=== PATIENT | male | born 1950 | race Caucasian/White ===

== ENCOUNTER → 2019-06-11 | Outpatient (CLI) | payer OTHER, MEDICARE ==
[~2019-06-11] MED LIST: ASP81TEC PO; CATHETER FLUSH 10 ML SYR IV PRN; CLOP75TA PO; IRON1CAP25 PO; KETO75CA PO; LISI2.5T PO; METO-333 PO; METO50TA7 PO; MTP50T PO; OMEP40CA36 PO; SCR1T1 PO; SERT50TA9 PO; SIMV20TA3 PO; TAMS0.4C2 PO; TMSL.4C PO
--- NOTE | 2019-06-11 12:41 | Diagnostic Imaging Report ---
PROCEDURE: CT abdomen and pelvis without contrast. TECHNIQUE: Multiple contiguous axial images were obtained through the abdomen and pelvis without the use of intravenous contrast. Auto Exposure Controls were utilized during the CT exam to meet ALARA standards for radiation dose reduction. INDICATION: Prostate cancer. Correlation is made with prior CT from 05/04/2014. FINDINGS: The lung bases are clear. No discrete liver mass is identified. The gallbladder is unremarkable. No biliary ductal dilatation is seen. Pancreas and spleen are unremarkable. No adrenal mass is seen. No renal calculi or hydronephrosis is identified. Aorta is calcified but not aneurysmal. No central retroperitoneal lymphadenopathy is seen. There are prominent lymph nodes in the periportal and portacaval region which appear to have been present on prior CT dating back to 2013. Portacaval node measures approximately 23 mm x 12 mm compared with 25 mm x 13 mm on prior. This is indeterminate. Small and large bowel loops are normal caliber. There is no obstruction. There is no ascites. Bladder is unremarkable. There appears to be some impression upon the bladder base by an enlarged prostate. No definite pelvic lymphadenopathy is seen. Evaluation of bony structures does demonstrate a sclerotic focus in the right iliac bone near the crest measuring approximately 7-8 mm. This was barely visible on prior exam measuring approximately 1 mm on prior study from . No other osteosclerotic lesions are seen. There is multilevel degenerative change in lumbar spine. IMPRESSION: 1. Periportal lymphadenopathy, similar to CT dating back to May 2014 and indeterminate. No central retroperitoneal lymphadenopathy is seen. 2. Prostatomegaly. 3. Sclerotic focus right iliac bone, increased in size since exam from 2013. Osteoblastic metastasis cannot be entirely excluded. No other abnormalities are seen. Dictated by: Dictated on workstation # [id number]
--- NOTE | 2019-06-11 16:28 | Diagnostic Imaging Report ---
INDICATION: Prostate carcinoma. TECHNIQUE: Patient was administered 20.9 mCi technetium 99m MDP intravenously and whole body imaging was performed after three-hour delay. COMPARISON: No prior studies are available for comparison. FINDINGS: There is normal uptake of activity by the axial and appendicular skeleton. There is uptake by both kidneys with excretion into the urinary bladder. There is uptake in the region of the great toes bilaterally, likely on degenerative basis. Mild uptake in the cervical spine is seen which is likely degenerative. No suspicious foci of tracer accumulation are seen to suggest osseous metastatic disease. IMPRESSION: No scintigraphic evidence of osseous metastatic disease. Dictated by: Dictated on workstation # [id number]
== END ==
LOC: CARD 11:46
PROVIDERS: ATTEND Urology
DX: C61 Malignant neoplasm of prostate (principal); R59.0 Localized enlarged lymph nodes; M89.9 Disorder of bone, unspecified
CPT/HCPCS: 74176; 78306

== ENCOUNTER 2020-02-11 14:07 | Outpatient (RCR) | payer MEDICARE, OTHER ==
[~2020-02-11 14:07] MED LIST changes: -CATHETER FLUSH 10 ML SYR IV PRN
[2020-02-11 16:14] LABS: BUN/CREATININE RATIO 19; CARBON DIOXIDE 21 MMOL/L (21-32); CHLORIDE 105 MMOL/L (98-107); CREATININE SERUM 0.88 MG/DL (0.60-1.30); GFR ESTIMATED > 60; GLUCOSE 103 MG/DL (70-105); POTASSIUM 4.4 MMOL/L (3.6-5.0); SODIUM 138 MMOL/L (135-145)
== END 2020-05-11 | disposition home or self-care (01) ==
LOC: ONC 14:07
PROVIDERS: ATTEND Radiology Radiation Oncology
DX: C61 Malignant neoplasm of prostate (principal); I25.10 Atherosclerotic heart disease of native coronary artery without angina pectoris; I10 Essential (primary) hypertension; M19.91 Primary osteoarthritis, unspecified site; M54.9 Dorsalgia, unspecified; G89.29 Other chronic pain; I25.2 Old myocardial infarction; N52.9 Male erectile dysfunction, unspecified; F17.210 Nicotine dependence, cigarettes, uncomplicated; Z80.3 Family history of malignant neoplasm of breast; Z95.5 Presence of coronary angioplasty implant and graft; Z79.899 Other long term (current) drug therapy
CPT/HCPCS: 80048; 84153; G0463; 99204

== ENCOUNTER → 2020-08-24 | Outpatient (CLI) | payer MEDICARE | LOC: PREOP 05:43 | PROVIDERS: ATTEND Urology | DX: Z01.818 Encounter for other preprocedural examination (principal) ==

== ENCOUNTER → 2020-08-29 | Day surgery (SDC) | payer MEDICARE ==
[2020-08-29] VITALS (10 sets, daily range): BP systolic 142–164; BP diastolic 73–93
[~2020-08-29] VITALS: Ht 173 cm; Wt 80.5 kg
[~2020-08-29] MED LIST changes: +CIPR500T4 PO; +LIDOCAINE PF 2% 5 ML (XYLOCAINE) VIAL ONE; +MEPERIDINE (DEMEROL) INJ 50 MG/ML IVP ONE; +MIDAZOLAM 2 MG/2 ML (VERSED) VIAL ONE; +ONDANSETRON 4 MG/2 ML (SDV) Z0FRAN IVP PRN; +ONDANSETRON 4 MG/2 ML (SDV) Z0FRAN ONE; +SEVOFLURANE (ULTANE) 15 ML INHAL SOLN ONE; +WATER (STERILE) FOR INJECTION 10 ML ONE; +cefTRIAXone 1,000 MG IV (ROCEPHIN) VIAL ONE; +fentaNYL INJECTION 100 MCG/2 ML AMP ONE; +morphine INJ 10 MG/ML 1ML (SYR OR VIAL) IVP ONE; +proPOfol 200 MG/20 ML (DIPRIVAN) VIAL IV ONE
--- NOTE | 2020-08-29 09:01 | Progress Note-Pre Operative ---
Pre-Operative Progress Note H&P Reviewed The H&P was reviewed, patient examined and no changes noted. Date Seen by Provider: Aug 29, 2020 Time Seen by Provider: 09: Date H&P Reviewed: Aug 29, 2020 Time H&P Reviewed: 09:01 Pre-Operative Diagnosis: CA PROSTATE ROBERTH PADILLA MD Aug 29, 2020 09:01
--- NOTE | 2020-08-29 09:02 | Progress Note-Post Operative ---
Post-Operative Progess Note Surgeon (s)/Apartment Coordinator (s) Surgeon ROBERTH PADILLA MD Apartment Coordinator: NONE Pre-Operative Diagnosis CA PROSTATE Post-Operative Diagnosis SAME Procedure & Operative Findings Date of Procedure 08/29/20 Procedure Performed/Findings SPACE OAR PLACEMENT Anesthesia Type GENERAL Estimated Blood Loss Estimated blood loss (mL): NONE Specimens/Packing Specimens Removed NONE Packing: NONE ROBERTH PADILLA MD Aug 29, 2020 09:02
--- NOTE | 2020-08-29 09:03 | Discharge Inst-Urology ---
Discharge Inst-Urology Reconcile Patient Problems Problems Reviewed?: Yes Final Diagnosis CA PROSTATE Patient Instructions/Follow Up Plan/Assessment/Instructions Please make appointment to been seen in office in 2 weeks. Rest 48 hours Increase oral fluids for 48 hours and then as needed. Diet as tolerated. If questions or concerns contact your physician Or seek help at emergency department. ROBERTH PADILLA MD Aug 29, 2020 09:03
[2020-08-29] MEDS: LACTATED RINGERS 1,000 ML IV PRN ×2 (09:04→09:15)
--- NOTE | 2020-08-29 11:08 | Anesthesia-General Post-Op ---
General Patient Condition Mental Status/LOC: Same as Preop Cardiovascular: Satisfactory Nausea/Vomiting: Absent Respiratory: Satisfactory Pain: Controlled Complications: Absent Post Op Complications Complications None Follow Up Care/Instructions Patient Instructions None needed. Anesthesia/Patient Condition Patient Condition Patient is doing well, no complaints, stable vital signs, no apparent adverse anesthesia problems. No complications reported per nursing. PEDRO VOSS CRNA Aug 29, 2020 11:08
== END | disposition home or self-care (01) ==
LOC: SDC 08:49
PROVIDERS: ATTEND Urology
DX: C61 Malignant neoplasm of prostate (principal); I10 Essential (primary) hypertension; I25.10 Atherosclerotic heart disease of native coronary artery without angina pectoris; K21.9 Gastro-esophageal reflux disease without esophagitis; M19.91 Primary osteoarthritis, unspecified site; Z95.5 Presence of coronary angioplasty implant and graft; Z87.442 Personal history of urinary calculi; F17.210 Nicotine dependence, cigarettes, uncomplicated; Z79.82 Long term (current) use of aspirin; Z79.899 Other long term (current) drug therapy; Z11.2 Encounter for screening for other bacterial diseases
CPT/HCPCS: 87081

== ENCOUNTER 2020-11-28 13:38 | Outpatient (RCR) | payer MEDICARE ==
[~2020-11-28 13:38] MED LIST changes: -LIDOCAINE PF 2% 5 ML (XYLOCAINE) VIAL ONE; -MEPERIDINE (DEMEROL) INJ 50 MG/ML IVP ONE; -MIDAZOLAM 2 MG/2 ML (VERSED) VIAL ONE; -ONDANSETRON 4 MG/2 ML (SDV) Z0FRAN IVP PRN; -ONDANSETRON 4 MG/2 ML (SDV) Z0FRAN ONE; -SEVOFLURANE (ULTANE) 15 ML INHAL SOLN ONE; -WATER (STERILE) FOR INJECTION 10 ML ONE; -cefTRIAXone 1,000 MG IV (ROCEPHIN) VIAL ONE; -fentaNYL INJECTION 100 MCG/2 ML AMP ONE; -morphine INJ 10 MG/ML 1ML (SYR OR VIAL) IVP ONE; -proPOfol 200 MG/20 ML (DIPRIVAN) VIAL IV ONE
== END 2020-12-11 | disposition home or self-care (01) ==
LOC: ONC 13:38
PROVIDERS: ATTEND Radiology Radiation Oncology
DX: Z51.0 Encounter for antineoplastic radiation therapy (principal); C61 Malignant neoplasm of prostate
CPT/HCPCS: 77300; 77301; 77334; 77336; 77338; 77385

== ENCOUNTER → 2021-06-07 | Outpatient (CLI) | payer MEDICARE ==
[~2021-06-07] MED LIST changes: -CIPR500T4 PO; +CIPR500T5 PO
== END | disposition home or self-care (01) ==
LOC: PREOP 06:28
PROVIDERS: ATTEND Surgery
DX: Z01.818 Encounter for other preprocedural examination (principal)